=== PATIENT | female | born 1990 | race African-American/Black ===

== ENCOUNTER 2017-07-12 04:39 | Emergency (ER) | payer OTHER ==
[~2017-07-12] VITALS: Ht 160 cm; Wt 62.4 kg
[2017-07-12 04:52] VITALS: BP 120/78
[2017-07-12] MEDS ORDERED: ACETAMINOPHEN 500 MG TABLET PO ONE (05:30)
[2017-07-12] MEDS ORDERED: LIDOCAINE 1%, 20ML INFIL ONE (05:30)
[2017-07-12] MEDS ORDERED: LIDOCAINE 1%, 10ML ONE (05:34)
[2017-07-12] MEDS ORDERED: ACETAMINOPHEN 500 MG TABLET ONE (05:35)
== END 2017-07-12 07:14 | disposition home or self-care (01) ==
LOC: ED 06:09
DX: S16.1XXA Strain of muscle, fascia and tendon at neck level, initial encounter (principal); S01.111A Laceration without foreign body of right eyelid and periocular area, initial encounter; Y04.0XXA Assault by unarmed brawl or fight, initial encounter; Y93.89 Activity, other specified; Y92.89 Other specified places as the place of occurrence of the external cause; Y99.2 Volunteer activity
CPT/HCPCS: 13132; 70450; 72125; 99285; J3490

== ENCOUNTER 2018-02-15 12:18 | Emergency (ER) | payer SELFPAY ==
[~2018-02-15] VITALS: Ht 162.6 cm; Wt 62.6 kg
[2018-02-15 12:24] VITALS: BP 112/73
[2018-02-15] MEDS ORDERED: PROPARACAINE OPHTH 0.5%, 15ML ONE (12:52)
[2018-02-15] MEDS ORDERED: PROPARACAINE OPHTH 0.5%, 15ML EACHEYE ONE (13:00)
== END 2018-02-15 13:30 | disposition home or self-care (01) ==
LOC: ED 13:20
DX: H10.12 Acute atopic conjunctivitis, left eye (principal); H57.12 Ocular pain, left eye
CPT/HCPCS: 99283

== ENCOUNTER 2019-07-03 07:57 | Emergency (ER) | payer SELFPAY ==
[~2019-07-03] VITALS: Ht 162.6 cm; Wt 66.0 kg
[2019-07-03 07:58] VITALS: BP 106/74
== END 2019-07-03 08:30 | disposition home or self-care (01) ==
LOC: ED 08:20
DX: S05.01XA Injury of conjunctiva and corneal abrasion without foreign body, right eye, initial encounter (principal); X58.XXXA Exposure to other specified factors, initial encounter; Y93.89 Activity, other specified; Y92.89 Other specified places as the place of occurrence of the external cause; Y99.8 Other external cause status
CPT/HCPCS: 99283